=== PATIENT | male | born 1975 | race Two or more races ===

== ENCOUNTER 2025-03-24 08:23 | Emergency (ER) | payer BC, SELFPAY ==
[2025-03-24 08:30] VITALS: BP 156/91; PULSE 75; RESP 16; TEMP 36.9; O2SAT 97; BMI 29.4
--- NOTE | 2025-03-24 11:12 | CRLHL7_ITS ---
For Patients: As a result of the Century Cures Act, medical imaging exams and procedure reports are released immediately into your electronic medical record. You may view this report before your referring provider. If you have questions, please contact your health care provider. INDICATION: LLQ PAIN TECHNIQUE: CT of the abdomen and pelvis was obtained with 86 mL of Isovue 370 intravenous contrast. Please note that all CT scans at this facility use dose modulation, iterative reconstruction, and/or weight-based dosing when appropriate to reduce radiation dose to as low as reasonably achievable. COMPARISON: None. FINDINGS: Lower thorax: Normal. Liver and biliary tree: Normal. Gallbladder: Normal. Spleen: Normal. Pancreas: Normal. Adrenal glands: Normal. Kidneys and ureters: No hydronephrosis or obstructing renal calculi. Gastrointestinal tract: Moderate stool burden is seen throughout the colon. No evidence of acute appendicitis. No evidence of bowel obstruction. Peritoneal cavity: Normal. Bladder: Normal. Pelvic organs: Normal. Vasculature: Normal. Lymph nodes: Normal. Abdominal wall: Trace fat containing periumbilical hernia. Musculoskeletal: Mild degenerative changes of the visualized spine. Mild chronic posterior right rib deformities. IMPRESSION: Moderate stool burden is seen throughout the colon. No evidence of bowel obstruction. Please note that all CT scans at this facility use dose modulation, iterative reconstruction, and/or weight-based dosing when appropriate to reduce radiation dose to as low as reasonably achievable. Dictated by Deandre Connelly MD @ 03/24/2025 12:28:38 PM (Electronically Signed)
--- NOTE | 2025-03-24 11:13 | ED.ABDPAIN ---
HPI - Abdominal Pain General Chief Complaint: Abdominal Pain Stated Complaint: Abdominal pain- Inflammation it's been 1 week Time Seen by Provider: 03/24/25 09:27 History of Present Illness HPI narrative: This 49-year-old male comes in reporting left lower quadrant abdominal pain that is been present for the past week. He states that it is a constant pain. He has not had any nausea, vomiting, or diarrhea. He does not report any fevers. He states that sometimes the pain makes him feel like he needs to void urine. Related Data Previous Rx's ?Medication ?Instructions ?Recorded cyclobenzaprine 10 mg tablet 10 mg PO TID #15 tabs 03/24/25 ketorolac 10 mg tablet 10 mg PO TID 5 days #15 tabs 03/24/25 Allergies Allergy/AdvReac Type Severity Reaction Status Date / Time No Known Drug Allergies Allergy Verified 03/24/25 11:53 Review of Systems Status of ROS Reports: 10 or more systems reviewed and unremarkable except as noted in History and below Narrative Constitutional: No fevers, no weight gain or loss. Eyes: No discharge. No vision changes. HENT: No congestion, no sore throat, no ear pain. Cardiovascular: No chest pain, no palpitations. Respiratory: No shortness of breath, no wheezes, no cough. Gastrointestinal: No vomiting, no diarrhea. Abdominal pain as described above. Genitourinary: No dysuria, no hematuria. Musculoskeletal: Normal range of motion. Skin: No rashes, no pruritis. Neurological: No dizziness, weakness, sensory change, speech change. Endo/Heme/Allergies: No bruising or bleeding. No polydipsia. Pysch: no suicidality, no anxiety, no insomnia. All other systems reviewed and are negative. Exam Narrative: Exam Narrative: Constitutional: Well-developed, well-nourished, no acute distress. HEENT: Normocephalic, atraumatic. Neck: Normal range of motion. Nontender. Supple. Heart: Regular. No murmurs. Normal rate. Intact distal pulses. Lungs: Clear to auscultation. No chest discomfort. No wheezes, rhonchi, or rales. Abdomen: Normal bowel sounds. Tenderness in the left lower quadrant. No rebound tenderness. Genitalia: Deferred. Back: No midline tenderness. Normal range of motion. Extremities: Normal range of motion. No injury. Skin: Intact. No rash. Warm. No erythema or pallor. Neurologic: No altered sensation. No weakness. Alert and oriented. Psychiatric: No suicidality. No anxiety or depression. No insomnia. Nursing notes and vitals signs are reviewed. Const: Vital Signs, click to edit/add: Vital Signs - 24 hr 03/24/25 08:30 Temperature 98.5 F Pulse Rate [Pulse Oximeter] 75 Respiratory Rate 16 Blood Pressure [Ri ght Upper Arm] 156/91 H Pulse Oximetry 97 Oxygen Delivery Me thod Room Air Course Vital Signs Vital signs: Initial Vital Signs Temperature 98.5 F 03/24/25 08:30 Temperature Source Temporal Artery Scan 03/24/25 08:30 Pulse Rate 75 03/24/25 08:30 Respiratory Rate 16 03/24/25 08:30 Blood Pressure 156/91 H 03/24/25 08:30 Blood Pressure Mean 112 H 03/24/25 08:30 Blood Pressure Position Sitting 03/24/25 08:30 Pulse Oximetry 97 03/24/25 08:30 Oxygen Delivery Method Room Air 03/24/25 08:30 Vital Signs Temperature 98.5 F 03/24/25 08:30 Pulse Rate 75 03/24/25 08:30 Respiratory Rate 16 03/24/25 08:30 Blood Pressure 156/91 H 03/24/25 08:30 Pulse Oximetry 97 03/24/25 08:30 Oxygen Delivery Method Room Air 03/24/25 08:30 Temperature 98.5 F 03/24/25 08:30 Pulse Rate 75 03/24/25 08:30 Respiratory Rate 16 03/24/25 08:30 Blood Pressure 156/91 H 03/24/25 08:30 Pulse Oximetry 97 03/24/25 08:30 Oxygen Delivery Method Room Air 03/24/25 08:30 MDM - Abdominal Pain MDM Narrative Medical decision making narrative: This patient comes in reporting left-sided abdominal pain as described above. He arrives with normal vital signs. He is not reporting any other associated symptoms. An IV is established and labs are acquired with reassuring results. Urinalysis also shows normal findings. CT scan was obtained of the abdomen and pelvis with IV contrast. This also shows no findings to explain the patient's symptoms. Perhaps it is more related to musculoskeletal cause. Patient is reassured with these normal results and is okay to be discharged home. I did provide prescriptions for Toradol and Flexeril for symptomatic relief. Lab Data Labs: Lab Results 03/24/25 03/24/25 Range/Units 11:20 12:17 WBC 5.67 (4.50-11.00) K/uL RBC 5.19 (4.30-5.90) m/uL Hgb 15.6 (13.5-17.5) gm/dL Hct 44.8 (37.0-53.0) % MCV 86 (80-100) fL MCH 30 (26-34) pg MCHC 35 (32-36) gm/dL RDW Coeff of Anika 12.8 (11.5-15.5) % Plt Count 247 (140-440) K/uL Neut % (Auto) 61.1 (42.0-72.0) % Lymph % (Auto) 27.9 (20-44) % [place] % (Auto) 9.9 (0.0-11.0) % Eos % (Auto) 0.9 (0.0-7.0) % Baso % (Auto) 0.2 (0.0-3.0) % Neut # (Auto) 3.47 (1.7-7.0) K/uL Lymph # (Auto) 1.58 (0.90-2.90) K/uL [place] # (Auto) 0.60 (0.00-0.90) K/UL Eos # (Auto) 0.05 (0.00-0.50) K/uL Baso # (Auto) 0.01 (0.00-0.30) K/uL Abs Immat Gran (auto) 0.00 (0.00-0.30) K/uL Imm/Tot Granulo (auto) 0.0 % Sodium 138 (135-149) mmol/L Potassium 4.0 (3.6-5.1) mmol/L Chloride 105 (96-114) mmol/L Carbon Dioxide 25 (20-32) mmol/L Anion Gap 8 (7-15) mEq/L BUN 15 (5-24) mg/dL Creatinine 0.8 (0.5-1.5) mg/dL Estimated Creat Clear 97.16 Estimated GFR 108 ml/min Glucose 107 (60-115) mg/dL Calcium 9.2 (8.4-10.6) mg/dL Urine Color Yellow (Yellow) Urine Appearance Clear (Clear) Urine pH 7.5 (5.0-8.5) Ur Specific [place] 1.015 (1.000-1.030) Urine Protein Negative (Negative) Urine Glucose (UA) Negative (Negative) Urine Ketones Negative (Negative) Urine Blood Negative (Negative) Urine Nitrite Negative (Negative) Urine Bilirubin Negative (Negative) Urine Urobilinogen 0.2 (0.2-1.0) Ur Leukocyte Esterase Negative (Negative) Urine RBC 0-2 (0-2) Urine WBC 0-2 (0-5) Ur Squamous Epith Cells None (None-Few) Urine Bacteria None (None) Imaging Data CT scan - abdomen: Radiologist's impression: Moderate stool burden is seen throughout the colon. No evidence of bowel obstruction. Discharge Plan Discharge Clinical Impression: Abdominal pain Patient Disposition: Home, Self-Care Condition: Stable Additional Instructions: Take medication as needed and directed. Activity as tolerated. Follow up with MD return if worsening. Prescriptions: New cyclobenzaprine 10 mg tablet 10 mg PO TID Qty: 15 0RF ketorolac 10 mg tablet 10 mg PO TID 5 Days Qty: 15 0RF Follow Up/Referrals: Provider,Not a Local [Primary Care Provider] - Stand Alone Forms: [employer] Info Instructions
[2025-03-24 11:30] LABS: Basophils Absolute Auto 0.01 K/uL (0.00-0.30); Basophils Percent Auto 0.2 % (0.0-3.0); Eosinophils Absolute Auto 0.05 K/uL (0.00-0.50); Eosinophils Percent Auto 0.9 % (0.0-7.0); Hematocrit 44.8 % (37.0-53.0); Hemoglobin* 15.6 gm/dL (13.5-17.5); Lymphocytes Absolute Auto 1.58 K/uL (0.90-2.90); Lymphocytes Percent Auto 27.9 % (20-44); Mean Corpuscular HGB Conc 35 gm/dL (32-36); Mean Corpuscular Hemoglobin 30 pg (26-34); Mean Corpuscular Volume 86 fL (80-100); Monocytes Percent Auto 9.9 % (0.0-11.0); Neutrophils Absolute Auto 3.47 K/uL (1.7-7.0); Neutrophils Percent Auto 61.1 % (42.0-72.0); Platelet Count* 247 K/uL (140-440); RDW Coefficient of Variation % 12.8 % (11.5-15.5); Red Blood Count 5.19 m/uL (4.30-5.90); White Blood Count* 5.67 K/uL (4.50-11.00)
[2025-03-24 11:42] LABS: Slide Review Reflex No
[2025-03-24 11:43] LABS: Chloride* 105 mmol/L (96-114); Sodium* 138 mmol/L (135-149)
[2025-03-24 11:46] LABS: Anion Gap 8 mEq/L (7-15); Blood Urea Nitrogen* 15 mg/dL (5-24); Calcium* 9.2 mg/dL (8.4-10.6); Carbon Dioxide* 25 mmol/L (20-32); Creatinine* 0.8 mg/dL (0.5-1.5); Est. Creatinine Clearance* 97.16; Estimated Glomerular Filt Rate 108 ml/min; Glucose* 107 mg/dL (60-115)
[2025-03-24 12:22] LABS: Appearance Urine Clear (Clear); Bilirubin Urine Negative (Negative); Blood Urine Negative (Negative); Color Urine Yellow (Yellow); Glucose Urine Negative (Negative); Ketones Urine Negative (Negative); Leukocyte Esterase Urine Negative (Negative); Nitrite Urine Negative (Negative); Protein Urine Negative (Negative); RBC Urine 0-2 (0-2); Specific Gravity Urine 1.015 (1.000-1.030); Urobilinogen Urine 0.2 (0.2-1.0); WBC Urine 0-2 (0-5); pH Urine 7.5 (5.0-8.5)
== END 2025-03-24 12:51 | disposition home or self-care (01) ==
PROVIDERS: Emergency Provider Emergency Medicine Emergency Medical Services
DX: R10.32 Left lower quadrant pain (principal)
CPT/HCPCS: 36415; 74177; 80048; 81001; 85025; 99284; 99285; Q9967